=== PATIENT | female | born 1995 | race American Indian/Alaskan Native ===

== ENCOUNTER 2021-12-17 11:02 | Emergency (ER) | payer OTHER ==
[~2021-12-17] VITALS: Ht 86.4 cm; Wt 114.6 kg
[2021-12-17 11:33] VITALS: BP 131/91
== END 2021-12-17 18:19 | disposition left against medical advice (07) ==
LOC: ER 11:07
DX: R10.2 Pelvic and perineal pain (principal); Z53.21 Procedure and treatment not carried out due to patient leaving prior to being seen by health care provider